=== PATIENT | female | born 1960 | race Caucasian/White ===

== ENCOUNTER 2017-10-19 14:28 | Day surgery (SDC) | payer BC ==
[2017-10-19] MEDS ORDERED: IOHEXOL 300MG/ML 30 ML BTL (18:16)
[2017-10-19] MEDS ORDERED: PROPOFOL 20 ML (18:54)
[2017-10-19] MEDS ORDERED: SUCCINYLCHOLINE CHLORIDE 100 MG/5 ML SYG IV (18:54)
[2017-10-19] MEDS ORDERED: ROCURONIUM 50 MG INJ (18:54)
[2017-10-19] MEDS ORDERED: LIDOCAINE 100 MG SYRINGE (18:54)
[2017-10-19] MEDS ORDERED: SUGAMMADEX SODIUM 200 MG/2 ML VIAL IV (18:55)
[2017-10-19] MEDS: CEFAZOLIN 2 GM/50 ML (PMX) 50 ML IVPB (20:34)
[2017-10-20] MEDS ORDERED: NACL 0.9% 3 ML SYG IV (06:00)
[2017-10-20] MEDS ORDERED: ACETAMINOPHEN 325 MG TAB PO (06:00)
[2017-10-20] MEDS ORDERED: ONDANSETRON 4 MG INJ IV (06:00)
[2017-10-20] MEDS ORDERED: ALBUTEROL/IPRATROPIUM (NEB) 3 ML AMP HHN (06:00)
[2017-10-20] MEDS ORDERED: morphine 2 MG INJ IV (06:00)
[2017-10-20] MEDS ORDERED: GLUCOSE GEL 15 GRAM TUBE BUCCAL (06:30)
[2017-10-20] MEDS ORDERED: GLUCOSE GEL 15 GRAM TUBE PO ×2 (06:30)
[2017-10-20] MEDS ORDERED: GLUCAGON 1 MG INJ IM (06:30)
[2017-10-20] MEDS ORDERED: DEXTROSE 50% 50 ML SYRINGE IV ×2 (06:30)
[2017-10-20] MEDS: FAMOTIDINE 20 MG TAB PO (08:40)
[2017-10-20] MEDS: INSULIN ASPART [NOVOLOG] 3 ML PEN SC (08:43)
[2017-10-20] MEDS: INSULIN GLARGINE [LANtus] 3 ML PEN SC (08:43)
[2017-10-20 09:16] LABS: WHITE BLOOD COUNT 8.7 10^3/ul (4.8-10.8)
[2017-10-20 09:16] LABS: ABNORMAL IP MESSAGE 1; HEMATOCRIT 36.2 % (37.0-47.0); HEMOGLOBIN 12.3 g/dl (12.0-16.0); MEAN CORPUSCULAR HEMOGLOBIN 29.9 pg (29.0-33.0); MEAN CORPUSCULAR VOLUME 88.1 fl (82.0-101.0); MEAN PLATELET VOLUME 10.8 fl (7.4-10.4); PLATELET COUNT 283 10^3/UL (140-415); RED BLOOD COUNT 4.11 10^6/ul (4.20-5.40); RED CELL DISTRIBUTION WIDTH 12.7 % (11.5-14.5)
[2017-10-20 09:20] LABS: ADD MAN DIFF? YES; POSITIVE DIFF @See below
[2017-10-20 09:35] LABS: HEMOGLOBIN A1C 5.8 % (0-5.9)
[2017-10-20 09:42] LABS: ALANINE AMINOTRANSFERASE 455 IU/L (13-69); ALBUMIN 3.6 g/dl (3.3-4.9); ALBUMIN/GLOBULIN RATIO 1.16; ALKALINE PHOSPHATASE 150 IU/L (42-121); ANION GAP 15 (8-16); ASPARTATE AMINO TRANSFERASE 559 IU/L (15-46); BILIRUBIN,INDIRECT 1.3 mg/dl (0-1.1); BILIRUBIN,TOTAL 2.2 mg/dl (0.2-1.3); BLOOD UREA NITROGEN 11 mg/dl (7-20); CALCIUM 8.8 mg/dl (8.4-10.2); CARBON DIOXIDE 24 mmol/L (21-31); CHLORIDE 107 mmol/L (97-110); CREATININE 0.65 mg/dl (0.44-1.00); GLUCOSE 182 mg/dl (70-220); MAGNESIUM 1.7 mg/dl (1.7-2.5); PHOSPHORUS 3.1 mg/dl (2.5-4.9); POTASSIUM 3.7 mmol/L (3.5-5.1); SODIUM 142 mmol/L (135-144); TOTAL PROTEIN 6.7 g/dl (6.1-8.1)
[2017-10-20 10:36] LABS: ANISOCYTOSIS 1+ (0-0); BAND NEUTROPHILS #M 0.8 10^3/ul (0.0-0.6); BAND NEUTROPHILS % (M) 10 % (0-4); BASOPHILS % (M) 1 % (0-2); LYMPHOCYTES #M 0.5 10^3/ul (0.8-2.9); LYMPHOCYTES % (M) 6 % (15-51); MICROCYTOSIS 1+ (0-0); MONOCYTES % (M) 1 % (0-11); PLATELET ESTIMATE NORMAL; REACTIVE LYMPHOCYTES% (M) 1 % (0-0); SEG NEUT #M 7.1 10^3/ul (1.6-7.5); SEGMENTED NEUTROPHILS (M) % 81 % (39-77)
[2017-10-21] MEDS ORDERED: ACCU-CHEK XX (02:00)
== END 2017-10-20 12:25 | disposition home or self-care (01) ==
LOC: SDS 14:28 → MS1 20:10 → SDS 10-20 12:25
DX: K80.50 Calculus of bile duct without cholangitis or cholecystitis without obstruction (principal); E11.9 Type 2 diabetes mellitus without complications
CPT/HCPCS: 43264; 74330; 80053; 82962; 83036; 83735; 84100; 85025